=== PATIENT | male | born 1980 | race Caucasian/White ===

== ENCOUNTER 2019-01-11 21:21 | Emergency (ER) | payer OTHER ==
[2019-01-11 21:26] VITALS: BP 149/87; PULSE 85; RESP 20; TEMP 98
[2019-01-11] MEDS ORDERED: SODIUM CHLORIDE 0.9% 500 ML 500 ML IV STA (22:19)
--- NOTE | 2019-01-11 22:47 | CT ---
EXAM: CT Head Without Intravenous Contrast CLINICAL HISTORY: ITS.REASON CT Reason: Pain TECHNIQUE: Axial computed tomography images of the head/brain without intravenous contrast. CTDI is 49.1 mGy and DLP is 1101 mGy-cm. This CT exam was performed using one or more of the following dose reduction techniques: automated exposure control, adjustment of the mA and/or kV according to patient size, and/or use of iterative reconstruction technique. COMPARISON: No relevant prior studies available. FINDINGS: Brain: Unremarkable. No hemorrhage. No significant white matter disease. No edema. Ventricles: Unremarkable. No ventriculomegaly. Bones/joints: Unremarkable. No acute fracture. Soft tissues: Unremarkable. Sinuses: Unremarkable as visualized. No acute sinusitis. Mastoid air cells: Unremarkable as visualized. No mastoid effusion. IMPRESSION: Normal head/brain CT.
--- NOTE | 2019-01-11 22:56 | XR ---
EXAM: XR Chest, 2 Views CLINICAL HISTORY: ITS.REASON XR Reason: Chest Pain TECHNIQUE: Frontal and lateral views of the chest. COMPARISON: No relevant prior studies available. FINDINGS: Lungs: There is some vague perihilar opacities bilaterally. No consolidation. Pleural space: Unremarkable. No pneumothorax. Heart: Unremarkable. No cardiomegaly. Mediastinum: Unremarkable. Bones/joints: Unremarkable. IMPRESSION: Suspect perihilar infiltrates bilaterally. Consider infectious or inflammatory processes. Follow-up in 6-8 weeks to ensure resolution.
[2019-01-11 23:00] LABS: Basophils # (A) 0.1 k/uL (0-0.2); Basophils % (A) 1 %; Eosinophils # (A) 0.2 k/uL (0-0.7); Eosinophils % (A) 3 %; HCT 48.5 % (39.0-53.0); HGB 15.8 gm/dL (13.0-17.5); Lymphocytes # (A) 3.1 k/uL (1.0-4.8); Lymphocytes % (A) 35 %; MCH 26.3 pg (25.0-35.0); MCHC 32.6 g/dL (31.0-37.0); MCV 80.6 fL (80.0-100.0); Mean Platelet Volume 6.2; Monocytes # (A) 0.6 k/uL (0-1.0); Monocytes % (A) 7 %; Neutrophils # (A) 4.6 k/uL (1.3-7.7); Neutrophils % (A) 52 %; Platelet Count 345 k/uL (150-450); RBC 6.01 m/uL (4.30-5.90); RDW 14.2 % (11.5-15.5); WBC 8.8 k/uL (3.8-10.6)
[2019-01-11 23:10] LABS: INR 0.9 (<1.2); Partial Thromboplastin Time 23.2 sec (22.0-30.0); Prothrombin Time 9.5 sec (9.0-12.0)
[2019-01-11 23:19] LABS: ALT 80 U/L (21-72); AST 33 U/L (17-59); Albumin 5.2 g/dL (3.5-5.0); Alkaline Phosphatase 93 U/L (38-126); Anion Gap 12 mmol/L; Blood Urea Nitrogen 17 mg/dL (9-20); Calcium 10.7 mg/dL (8.4-10.2); Carbon Dioxide 25 mmol/L (22-30); Chloride 108 mmol/L (98-107); Glucose 104 mg/dL (74-99); Magnesium 2.1 mg/dL (1.6-2.3); Potassium 4.4 mmol/L (3.5-5.1); Sodium 145 mmol/L (137-145); Total Bilirubin 0.6 mg/dL (0.2-1.3); Total Protein 8.6 g/dL (6.3-8.2)
[2019-01-12] MEDS ORDERED: MECLIZINE 12.5 MG TAB PO STA (00:31)
[2019-01-12] MEDS ORDERED: AZITHROMYCIN 500 MG TAB PO STA (00:31)
--- NOTE | 2019-01-12 00:46 | ED ---
General Adult HPI - General Source: patient, family, RN notes reviewed Mode of arrival: wheelchair Limitations: no limitations <Yunior Flores - Last Filed: 01/12/19 01:48> <Mark Bonds - Last Filed: 01/12/19 16:27> - General Chief complaint: Dizziness Stated complaint: Dizzy Time Seen by Provider: 01/11/19 21:54 - History of Present Illness Initial comments: 38-year-old male presents to the emergency department for multiple complaints. Patient states he has not felt well for the past 10 days. He states that he feels like he cannot focus his eyes and feels dizzy at times. He also reports migraine headaches. He states he has had headaches before but these are constant. Patient also complaining of shortness of breath. He states this is constant. He denies cough or fever. He denies any chest pain. He denies any difficult walking. He denies any other concerns at this time.Patient has no other complaints at this time including shortness of breath, chest pain, abdominal pain, nausea or vomiting, headache, or visual changes. (Yunior Flores) - Related Data Home Medications Medication Instructions Recorded Confirmed Ibuprofen [Advil] 600 - 800 mg PO Q8HR PRN 01/11/19 01/11/19 Multivitamins, Thera [Multivitamin 1 tab PO DAILY 01/11/19 01/11/19 (formulary)] Previous Rx's Medication Instructions Recorded Azithromycin [Zithromax Z-pack] 250 mg PO DIRECTED #6 tab 01/12/19 Meclizine [Antivert] 25 mg PO TID PRN #20 tab 01/12/19 Allergies Allergy/AdvReac Type Severity Reaction Status Date / Time No Known Allergies Allergy Verified 01/11/19 22:33 Review of Systems ROS Other: All systems not noted in ROS Statement are negative. <Yunior Flores - Last Filed: 01/12/19 01:48> ROS Other: All systems not noted in ROS Statement are negative. <Mark Bonds - Last Filed: 01/12/19 16:27> ROS Statement: Those systems with pertinent positive or pertinent negative responses have been documented in the HPI. Past Medical History Additional Past Medical History / Comment(s): migraines History of Any Multi-Drug Resistant Organisms: None Reported Past Surgical History: Hernia Repair Past Psychological History: No Psychological Hx Reported Smoking Status: Never smoker Past Alcohol Use History: None Reported Past Drug Use History: Marijuana <Yunior Flores P - Last Filed: 01/12/19 01:48> General Exam Limitations: no limitations General appearance: alert, in no apparent distress Head exam: Present: atraumatic, normocephalic, normal inspection Eye exam: Present: normal appearance, PERRL, EOMI (Patient initially not following commands by following finger however this was repeated with Dr. Bonds and patient has EOMI without difficulty.). Absent: scleral icterus, conjunctival injection, periorbital swelling ENT exam: Present: normal exam, normal oropharynx, mucous membranes moist, TM's normal bilaterally, normal external ear exam Neck exam: Present: normal inspection, full ROM. Absent: tenderness, meningismus, lymphadenopathy Respiratory exam: Present: normal lung sounds bilaterally. Absent: respiratory distress, wheezes, rales, rhonchi, stridor Cardiovascular Exam: Present: regular rate, normal rhythm, normal heart sounds. Absent: systolic murmur, diastolic murmur, rubs, gallop, clicks GI/Abdominal exam: Present: soft, normal bowel sounds. Absent: distended, tenderness, guarding, rebound, rigid Neurological exam: Present: alert, oriented X3, CN II-XII intact, normal gait Expanded Patient oriented to: Present: person, place, time Speech: Present: fluid speech Cranial nerves: EOM's Intact: Normal, Nystagmus: Normal, Facial Sensation: Normal Cerebellar function: Finger to Nose: Normal, Heel to [place]: Normal, Romberg: Normal Upper motor neuron: [place] Neglect: Normal, Pronator Drift: Normal Sensory exam: Upper Extremity Light Touch: Normal, Upper Extremity Pin Prick: Normal, Lower Extremity Light Touch: Normal, Lower Extremity Pin Prick: Normal Motor strength exam: RUE: 5, LUE: 5, RLE: 5, LLE: 5 Eye Response: (4) open spontaneously Motor Response: (6) obeys commands Verbal Response: (5) oriented Juan Manuel Total: 15 Psychiatric exam: Present: normal affect, normal mood <Yunior Flores P - Last Filed: 01/12/19 01:48> Course <Yunior Flores P - Last Filed: 01/12/19 01:48> <Mark Bonds - Last Filed: 01/12/19 16:27> Vital Signs 01/11/19 21:21 Temperature 98 F Pulse Rate 85 Respiratory 20 Rate Blood Pressure 149/87 O2 Sat by Pulse 99 Oximetry - Reevaluation(s) Reevaluation #1: 01/12/19 16:26 Late documentation PA supervision: I personally do a [id number] evaluation the patient did examine him and discuss findings with him and his . Patient 's neurological exam was essentially within normal limits. No dizziness so the findings appear consistent with intermittent benign positional vertigo additionally he does have evidence on x-ray of perihilar infiltrate. He will be treated appropriately with follow-up with his doctor. He be placed on Antivert antibiotics. I do agree with the assessment and plan at this time. ( Mark Bonds) Medical Decision Making - Lab Data Result diagrams: 01/11/19 22:35 01/11/19 22:35 <Yunior Flores - Last Filed: 01/12/19 01:48> - Lab Data Result diagrams: 01/11/19 22:35 01/11/19 22:35 <Mark Bonds - Last Filed: 01/12/19 16:27> - Medical Decision Making 38-year-old male presents to the emergency department for multiple complaints. Patient complaining of dizziness and headaches. No focal neuro deficits. Patient does not have ataxia. No difficulty ambulating. Positive [place]-Hallpike maneuver. Patient likely has vertigo, given Antivert. Patient does have a history of migraines. Patient also complaining of shortness of breath. CBC and CMP are generally unremarkable. Trop negative. Chest x-ray does show perihilar infiltrates, likely the cause of patient's shortness of breath. Patient treated with azithromycin as this is likely atypical. Patient will follow up with primary care in 1-2 days and return here if he has any worsening symptoms. Dr. Bonds also saw the patient. (Yunior Flores) - Lab Data Lab Results 01/11/19 01/11/19 01/11/19 Range/Units 22:35 22:35 22:35 WBC 8.8 (3.8-10.6) k/uL RBC 6.01 H (4.30-5.90) m/uL Hgb 15.8 (13.0-17.5) gm/dL Hct 48.5 (39.0-53.0) % MCV 80.6 (80.0-100.0) fL MCH 26.3 (25.0-35.0) pg MCHC 32.6 (31.0-37.0) g/dL RDW 14.2 (11.5-15.5) % Plt Count 345 (150-450) k/uL Neutrophils % 52 % Lymphocytes % 35 % Monocytes % 7 % Eosinophils % 3 % Basophils % 1 % Neutrophils # 4.6 (1.3-7.7) k/uL Lymphocytes # 3.1 (1.0-4.8) k/uL Monocytes # 0.6 (0-1.0) k/uL Eosinophils # 0.2 (0-0.7) k/uL Basophils # 0.1 (0-0.2) k/uL PT 9.5 (9.0-12.0) sec INR 0.9 (<1.2) APTT 23.2 (22.0-30.0) sec Sodium 145 (137-145) mmol/L Potassium 4.4 (3.5-5.1) mmol/L Chloride 108 H (98-107) mmol/L Carbon Dioxide 25 (22-30) mmol/L Anion Gap 12 mmol/L BUN 17 (9-20) mg/dL Creatinine 1.08 (0.66-1.25) mg/dL Est GFR (CKD-EPI)AfAm >90 (>60 ml/min/1.73 sqM) Est GFR (CKD-EPI)NonAf 88 (>60 ml/min/1.73 sqM) Glucose 104 H (74-99) mg/dL Calcium 10.7 H (8.4-10.2) mg/dL Magnesium 2.1 (1.6-2.3) mg/dL Total Bilirubin 0.6 (0.2-1.3) mg/dL AST 33 (17-59) U/L ALT 80 H (21-72) U/L Alkaline Phosphatase 93 (38-126) U/L Troponin I (0.000-0.034) ng/mL Total Protein 8.6 H (6.3-8.2) g/dL Albumin 5.2 H (3.5-5.0) g/dL 01/11/19 Range/Units 22:35 WBC (3.8-10.6) k/uL RBC (4.30-5.90) m/uL Hgb (13.0-17.5) gm/dL Hct (39.0-53.0) % MCV (80.0-100.0) fL MCH (25.0-35.0) pg MCHC (31.0-37.0) g/dL RDW (11.5-15.5) % Plt Count (150-450) k/uL Neutrophils % % Lymphocytes % % Monocytes % % Eosinophils % % Basophils % % Neutrophils # (1.3-7.7) k/uL Lymphocytes # (1.0-4.8) k/uL Monocytes # (0-1.0) k/uL Eosinophils # (0-0.7) k/uL Basophils # (0-0.2) k/uL PT (9.0-12.0) sec INR (<1.2) APTT (22.0-30.0) sec Sodium (137-145) mmol/L Potassium (3.5-5.1) mmol/L Chloride (98-107) mmol/L Carbon Dioxide (22-30) mmol/L Anion Gap mmol/L BUN (9-20) mg/dL Creatinine (0.66-1.25) mg/dL Est GFR (CKD-EPI)AfAm (>60 ml/min/1.73 sqM) Est GFR (CKD-EPI)NonAf (>60 ml/min/1.73 sqM) Glucose (74-99) mg/dL Calcium (8.4-10.2) mg/dL Magnesium (1.6-2.3) mg/dL Total Bilirubin (0.2-1.3) mg/dL AST (17-59) U/L ALT (21-72) U/L Alkaline Phosphatase (38-126) U/L Troponin I <0.012 (0.000-0.034) ng/mL Total Protein (6.3-8.2) g/dL Albumin (3.5-5.0) g/dL Disposition Is patient prescribed a controlled substance at d/c from ED?: No Time of Disposition: 00:45 <Yunior Flores P - Last Filed: 03/03/19 01:48> <Mark Bonds - Last Filed: 01/12/19 16:27> Clinical Impression: Vertigo, Pneumonia Disposition: HOME SELF-CARE Condition: Good Instructions (If sedation given, give patient instructions): Dizziness (ED), Pneumonia (ED) Additional Instructions: Please take medications as directed. Please follow-up with primary care in 1-2 days. Please return to the emergency department if you have any worsening symptoms. Prescriptions: Azithromycin [Zithromax Z-pack] 250 mg PO DIRECTED #6 tab Meclizine [Antivert] 25 mg PO TID PRN #20 tab PRN Reason: dizzy Referrals: Len Mehta MD [Primary Care Provider] - 1-2 days
== END 2019-01-12 01:14 | disposition home or self-care (01) ==
LOC: EC 21:21
DX: J18.9 Pneumonia, unspecified organism (principal); R42 Dizziness and giddiness; G43.909 Migraine, unspecified, not intractable, without status migrainosus
CPT/HCPCS: 36415; 70450; 71046; 80053; 83735; 84484; 85025; 85610; 85730; 96360; 96361; 99284

== ENCOUNTER 2020-04-11 19:31 | Emergency (ER) | payer OTHER ==
[2020-04-11 19:44] VITALS: BP 136/75; PULSE 90; RESP 18; TEMP 98.4
[2020-04-11] MEDS ORDERED: TOPICAL SKIN ADHESIVE 1 EACH AMP TOPICAL ONE (19:57)
--- NOTE | 2020-04-11 20:12 | ED ---
Wound/Laceration HPI - General Source: patient Mode of arrival: ambulatory Limitations: no limitations <Tatyana Brink - Last Filed: 04/11/20 21:02> <Nelia Varela - Last Filed: 04/14/20 11:39> - General Chief Complaint: Wound/Laceration Stated Complaint: L middle finger injury Time Seen by Provider: 04/11/20 19:45 - History of Present Illness Initial Comments: Patient is a 39-year-old male presenting to the emergency department with a small wound to his left middle finger. Patient states he cut it on a piece of glass. He states he did wash it with soap and water and does not believe that there is a piece of glass still in there. He states his tetanus vaccine is up-to-date. Bleeding is controlled at this time. He denies being on blood thinners. He has no further complaints. (Tatyana Brink) - Related Data Home Medications Medication Instructions Recorded Confirmed Ibuprofen [Advil] 600 - 800 mg PO Q8HR PRN 01/11/19 01/11/19 Multivitamins, Thera [Multivitamin 1 tab PO DAILY 01/11/19 01/11/19 (formulary)] Previous Rx's Medication Instructions Recorded Azithromycin [Zithromax Z-pack] 250 mg PO DIRECTED #6 tab 01/12/19 Meclizine [Antivert] 25 mg PO TID PRN #20 tab 01/12/19 Allergies Allergy/AdvReac Type Severity Reaction Status Date / Time No Known Allergies Allergy Verified 04/11/20 19:44 Review of Systems ROS Other: All systems not noted in ROS Statement are negative. <Tatyana Brink - Last Filed: 04/11/20 21:02> ROS Other: All systems not noted in ROS Statement are negative. <Nelia Varela - Last Filed: 04/14/20 11:39> ROS Statement: Those systems with pertinent positive or pertinent negative responses have been documented in the HPI. Past Medical History Past Medical History: Asthma Additional Past Medical History / Comment(s): migraines History of Any Multi-Drug Resistant Organisms: None Reported Past Surgical History: Hernia Repair Past Psychological History: No Psychological Hx Reported Smoking Status: Never smoker Past Alcohol Use History: None Reported Past Drug Use History: Marijuana <Tatyana Brink - Last Filed: 04/11/20 21:02> General Exam Limitations: no limitations <Tatyana Brink - Last Filed: 04/11/20 21:02> - General Exam Comments Initial Comments: GENERAL: Well-appearing, well-nourished and in no acute distress. HEAD: Atraumatic, normocephalic. EYES: Pupils equal round and reactive to light, extraocular movements intact, sclera anicteric, conjunctiva are normal. ENT: Nares patent, oropharynx clear without exudates. Moist mucous membranes. NECK: Normal range of motion, supple without lymphadenopathy or JVD. LUNGS: Breath sounds clear to auscultation bilaterally and equal. No wheezes rales or rhonchi. HEART: Regular rate and rhythm without murmurs, rubs or gallops. ABDOMEN: Soft, nontender, normoactive bowel sounds. No guarding, no rebound. No masses appreciated. : Deferred EXTREMITIES: Patient has full range of motion of left hand and fingers. Sensation is normal, neurovascular intact. No pitting or edema. No clubbing or cyanosis. NEUROLOGICAL: Normal speech, normal gait. PSYCH: Normal mood, normal affect. SKIN: Warm, Dry, normal turgor, no rashes. Patient has a very small, 0.5 cm puncture wound to the left middle finger, just distal to the MCP joint. No active bleeding. (Tatyana Brink) Course Vital Signs 04/11/20 04/11/20 19:41 21:05 Temperature 98.4 F 98.4 F Pulse Rate 90 90 Respiratory 18 18 Rate Blood Pressure 136/75 136/75 O2 Sat by Pulse 97 97 Oximetry Medical Decision Making <Tatyana Brink - Last Filed: 04/11/20 21:02> <Nelia Varela - Last Filed: 04/14/20 11:39> - Medical Decision Making Patient is a 39-year-old male here for a 0.5 cm small laceration injury to his left middle finger. Tetanus vaccine is up-to-date. X-rays reveal no acute fractures, dislocations, foreign bodies. Patient is refusing sutures. Patient's wound was cleaned and topical exofin was applied along with a few Steri-Strips. Patient is stable for discharge. He will keep wound clean and dry. Patient will follow up with PCP as needed. Case discussed with Dr. Varela. (Tatyana Brink) I was available for consultation in the emergency department. The history and physical exam were done by the midlevel provider. I was consulted for this patients care. I reviewed the case with the midlevel provider and based on their presentation of the patient, I agree with the assessment, medical decision making and plan of care as documented. Chart was dictated using [employer] dictation software. Attempts were made to correct any dictation errors however some typographical errors may persist. Patient was seen during a national state of emergency due to the Covid-19 pandemic. (Nelia Varela) Disposition Is patient prescribed a controlled substance at d/c from ED?: No <Tatyana Brink - Last Filed: 04/11/20 21:02> <Nelia Varela - Last Filed: 04/14/20 11:39> Clinical Impression: Laceration of left middle finger Disposition: HOME SELF-CARE Condition: Stable Instructions (If sedation given, give patient instructions): Skin Adhesive Care (ED) Additional Instructions: Please return to the Emergency Department if symptoms worsen or any other concerns. Keep wound clean and dry. Do not soak hand. Referrals: Len Mehta MD [Primary Care Provider] - 1-2 days
--- NOTE | 2020-04-11 20:20 | XR ---
EXAMINATION TYPE: XR hand limited LT DATE OF EXAM: 04/11/2020 COMPARISON: NONE HISTORY: Third digit puncture TECHNIQUE: 2 views FINDINGS: I see no fracture nor dislocation. Joint spaces are normal. There are no pathologic calcifi cations. There is no evidence of radiopaque foreign body. IMPRESSION: No fracture seen.
== END 2020-04-11 21:06 | disposition home or self-care (01) ==
LOC: EC 19:31
DX: S61.213A Laceration without foreign body of left middle finger without damage to nail, initial encounter (principal); Z53.20 Procedure and treatment not carried out because of patient's decision for unspecified reasons; W25.XXXA Contact with sharp glass, initial encounter
CPT/HCPCS: 99283

== ENCOUNTER 2024-04-25 15:22 | Emergency (ER) | payer OTHER ==
--- NOTE | 2024-04-25 16:33 | ED ---
Chest Pain HPI - General Chief Complaint: Chest Pain Stated Complaint: Chest pain, SOB, blurred vision Time Seen by Provider: 04/25/24 16:08 Source: patient, RN notes reviewed, old records reviewed Mode of arrival: ambulatory Limitations: no limitations - History of Present Illness Initial Comments: This is a 43-year-old male who was sent in by work initially to an urgent care and then now to us patient is presenting with chest pain left-sided chest pain pain underneath the left arm and left shoulder, pain to the left side of the chest and rib cage. Patient states he has history of asthma some occasional shortness of breath but no current shortness of breath no cough or congestion no recent trauma no fevers. Patient has no history of high blood pressure cholesterol diabetes MD Complaint: chest pain -: hour(s) Onset: during rest, during exertion Pain Location: left chest Pain Radiation: LUE Severity: moderate Severity scale (1-10): 4 Quality: sharp Consistency: constant, intermittent Improves With: nothing Worsens With: nothing Anginal Symptoms: dyspnea Other Symptoms: cough Treatments Prior to Arrival: none - Related Data Home Medications Medication Instructions Recorded Confirmed Multivitamins, Thera [Multivitamin 1 tab PO DAILY 01/11/19 04/25/24 (formulary)] Allergies Allergy/AdvReac Type Severity Reaction Status Date / Time No Known Allergies Allergy Verified 04/25/24 17:33 Review of Systems ROS Statement: Those systems with pertinent positive or pertinent negative responses have been documented in the HPI. ROS Other: All systems not noted in ROS Statement are negative. EKG Findings - EKG Comments: EKG Findings:: EKG is sinus 63 MN 158 QRS 106 QTc 386 - EKG Results: EKG: interpreted by RIKA Past Medical History Past Medical History: Asthma Additional Past Medical History / Comment(s): migraines History of Any Multi-Drug Resistant Organisms: None Reported Past Surgical History: Hernia Repair Past Psychological History: No Psychological Hx Reported Past Alcohol Use History: None Reported Past Drug Use History: Marijuana General Exam Limitations: no limitations General appearance: alert, in no apparent distress, anxious Head exam: Present: atraumatic, normocephalic, normal inspection Eye exam: Present: normal appearance, PERRL, EOMI. Absent: scleral icterus, conjunctival injection, periorbital swelling ENT exam: Present: normal exam, mucous membranes moist Neck exam: Present: normal inspection. Absent: tenderness, meningismus, lymphadenopathy Respiratory exam: Present: normal lung sounds bilaterally. Absent: respiratory distress, wheezes, rales, rhonchi, stridor Cardiovascular Exam: Present: regular rate, normal rhythm, normal heart sounds. Absent: systolic murmur, diastolic murmur, rubs, gallop, clicks GI/Abdominal exam: Present: soft, normal bowel sounds. Absent: distended, tenderness, guarding, rebound, rigid Extremities exam: Present: normal inspection, full ROM, normal capillary refill. Absent: tenderness, pedal edema, joint swelling, calf tenderness Back exam: Present: normal inspection Neurological exam: Present: alert, oriented X3, CN II-XII intact Psychiatric exam: Present: normal affect, normal mood Skin exam: Present: warm, dry, intact, normal color. Absent: rash Course Vital Signs 04/25/24 04/25/24 04/25/24 15:33 17:35 19:37 Temperature 97.7 F 97.6 F Pulse Rate 68 67 Respiratory 16 18 18 Rate Blood Pressure 173/90 151/86 O2 Sat by Pulse 98 98 Oximetry - Reevaluation(s) Reevaluation #1: 04/25/24 17:10 Medical records reviewed Reevaluation #2: Patient's pain is improved Reevaluation #3: Patient informed of results and questions answered Studies Chest x-ray is negative for acute disease Reevaluation #4: 04/25/24 17:10 Was pt. sent in by a medical professional or institution (, PA, LIVESTOCK COUNTER, urgent care, hospital, or group home...) When possible be specific @ -no Did you speak to anyone other than the patient for history (EMS, parent, family, police, friend...)? What history was obtained from this source @ -no Did you review nursing and triage notes (agree or disagree)? Why? @ -agree Are old charts reviewed (outside hosp., previous admission, EMS record, old EKG, old radiological studies, urgent care reports/EKG's, group home records)? Report findings @ -yes Differential Diagnosis (chest pain, altered mental status, abdominal pain women, abdominal pain men, vaginal bleeding, weakness, fever, dyspnea, syncope, headache, dizziness, GI bleed, back pain, seizure, CVA, palpatations, mental health, musculoskeletal)? @ -prior EKG interpreted by me (3pts min.). @ -yes X-rays interpreted by me (1pt min.). @ -yes negative for acute disease CT interpreted by me (1pt min.). @ -no U/S interpreted by me (1pt. min.). @ -no What testing was considered but not performed or refused? (CT, X-rays, U/S, labs)? Why? @ -none What meds were considered but not given or refused? Why? @ -none Did you discuss the management of the patient with other professionals (professionals i.e. , PA, LIVESTOCK COUNTER, lab, RT, psych nurse, social sciences lecturer, change booth attendant, teacher, chief technology officer, sample case porter)? Give summary @ -no Was smoking cessation discussed for >3mins.? @ -no Was critical care preformed (if so, how long)? @ -no Were there social determinants of health that impacted care today? How? (Homelessness, low income, unemployed, alcoholism, drug addiction, transportation, low edu. Level, literacy, decrease access to med. care, [place] [facility], rehab)? @ -none Was there de-escalation of care discussed even if they declined (Discuss DNR or withdrawal of care, Hospice)? DNR status @ -no What co-morbidities impacted this encounter? (DM, HTN, Smoking, COPD, CAD, Cancer, CVA, ARF, Chemo, Hep., AIDS, mental health diagnosis, sleep apnea, morbid obesity)? @ -none Was patient admitted / discharged? Hospital course, mention meds given and route, prescriptions, significant lab abnormalities, going to OR and other pertinent info. @ - 43 male to ER for chest pain. No specific cause of chest pain found here in the ER patient feels otherwise well. Patient can be discharged home Discharge Undiagnosed new problem with uncertain prognosis? @ -no Drug Therapy requiring intensive monitoring for toxicity (Heparin, Nitro, Insulin, Cardizem)? @ -no Were any procedures done? @ -no Diagnosis/symptom? @ -Chest pain Acute, or Chronic, or Acute on Chronic? @ -Acute Uncomplicated (without systemic symptoms) or Complicated (systemic symptoms)? @ -Complicated Side effects of treatment? @ -no Exacerbation, Progression, or Severe Exacerbation? @ -exacerbation Poses a threat to life or bodily function? How? (Chest pain, [place], [place], pneumonia, PE, COPD, DKA, ARF, appy, cholecystitis, CVA, Diverticulitis, Homicidal, Suicidal, threat to staff... and all critical care pts) @ -yes With chest pain Reevaluation #5: Differential Chest Pain: Stable Angina, Unstable Angina, STEMI, NSTEMI Aortic Dissection, Pneumothorax, Musculoskeletal, Esophageal Spasm GERD, Cholecystitis, Pancreatitis, Zoster, this is not meant to be an all-inclusive list. Chest Pain MDM - MDM 43 male to ER for chest pain. No specific cause of chest pain found here in the ER patient feels otherwise well. Patient can be discharged home Disposition Clinical Impression: Atypical chest pain, Chest pain Disposition: HOME SELF-CARE Condition: Fair Instructions (If sedation given, give patient instructions): Chest Pain (ED) Is patient prescribed a controlled substance at d/c from ED?: No Referrals: None,Stated [Primary Care Provider] - 1-2 days Time of Disposition: 18:20
[2024-04-25 17:28] LABS: Basophils # (A) 0.1 k/uL (0-0.2); Basophils % (A) 1 %; Eosinophils # (A) 0.1 k/uL (0-0.7); Eosinophils % (A) 1 %; HCT 47.5 % (39.0-53.0); Lymphocytes # (A) 2.2 k/uL (1.0-4.8); Lymphocytes % (A) 29 %; MCH 25.8 pg (25.0-35.0); MCHC 31.6 g/dL (31.0-37.0); MCV 81.8 fL (80.0-100.0); Mean Platelet Volume 7.1; Monocytes # (A) 0.4 k/uL (0-1.0); Monocytes % (A) 5 %; Neutrophils # (A) 4.8 k/uL (1.3-7.7); Neutrophils % (A) 62 %; Platelet Count 296 k/uL (150-450); RBC 5.81 m/uL (4.30-5.90); RDW 13.9 % (11.5-15.5); WBC 7.7 k/uL (3.8-10.6)
[2024-04-25 17:36] LABS: INR 0.9 (<1.2); Partial Thromboplastin Time 24.8 sec (22.0-30.0); Prothrombin Time 9.8 sec (10.0-12.5)
[2024-04-25 17:40] VITALS: RESP 18
--- NOTE | 2024-04-25 17:41 | XR ---
EXAMINATION TYPE: XR chest 2V DATE OF EXAM: 04/25/2024 4:13 PM CLINICAL INDICATION:Male, 43 years old with history of left rib pain increase pain wih movement; [facility] COMPARISON: 01/11/2019 TECHNIQUE: XR chest 2V. Frontal and lateral views of the chest.. FINDINGS: Lines/Tubes/Devices: No indwelling lines are seen. Heart/mediastinum: Heart size is normal. Mediastinum appears normal. Pulmonary vascularity: Not increased, Lungs/Pleura: There is no evidence of pleural effusion, focal consolidation, or pneumothorax. Musculoskeletal: No acute osseous abnormality demonstrated in the limits of the exam. Other findings: None. IMPRESSION: No acute cardiopulmonary abnormality. If concern persists, consider CT.
[2024-04-25 17:53] LABS: ALT 63 U/L (4-49); AST 37 U/L (17-59); African American GFR (CKD) >90 (>60 ml/min/1.73 sqM); Albumin 4.8 g/dL (3.5-5.0); Alkaline Phosphatase 90 U/L (38-126); Anion Gap 7 mmol/L; Blood Urea Nitrogen 11 mg/dL (9-20); Carbon Dioxide 24 mmol/L (22-30); Chloride 109 mmol/L (98-107); Glucose 101 mg/dL (74-99); Lipase 75 U/L (23-300); Magnesium 1.9 mg/dL (1.6-2.3); Non-African American GFR(CKD) >90 (>60 ml/min/1.73 sqM); Potassium 4.1 mmol/L (3.5-5.1); Sodium 140 mmol/L (137-145); Total Bilirubin 0.9 mg/dL (0.2-1.3); Total Protein 7.8 g/dL (6.3-8.2)
[2024-04-25 18:01] LABS: NT-Pro-B-Type Natriuretic Pept 45 pg/mL
[2024-04-25 19:37] VITALS: BP 151/86; PULSE 67; TEMP 97.6
== END 2024-04-25 19:37 | disposition home or self-care (01) ==
LOC: EC 15:22
DX: R07.89 Other chest pain (principal); F12.90 Cannabis use, unspecified, uncomplicated
CPT/HCPCS: 36415; 71046; 80053; 83690; 83735; 83880; 84484; 85025; 85610; 85730; 93005; 99285